=== PATIENT | female | born 1980 | race Caucasian/White ===

== ENCOUNTER 2022-05-14 06:12 | Observation (INO) ==
--- NOTE | 2022-04-13 10:34 | PAT Medication Instructions ---
Medication Instructions Date of Service April 13, 2022 Home Medications albuterol sulfate 90 mcg/actuation aerosol inhaler 1 inh inhalation QID PRN ascorbic acid (vitamin C) 1,000 mg tablet (Vitamin C) 1 g PO BID cholecalciferol (vitamin D3) 125 mcg (5,000 unit) tablet (Vitamin D3) 125 mcg PO TID cyanocobalamin (vitamin B-12) 1,000 mcg capsule 1,000 mcg PO QAM dulaglutide 4.5 mg/0.5 mL subcutaneous pen injector (Trulicity) 4.5 mg subcut WK hydrochlorothiazide 25 mg tablet 25 mg PO QAM levonorgestrel 20 mcg/24 hours (8 yrs) 52 mg intrauterine device (Mirena) 20 mcg intrauterine UD levothyroxine 200 mcg tablet 200 mcg PO QAM liothyronine 5 mcg tablet 10 mcg PO QAM lisinopril 10 mg tablet 10 mg PO QAM omega-3 fatty acids 1,000 mg PO QAM sertraline 50 mg tablet 75 mg PO QAM simvastatin 10 mg tablet 10 mg PO BID Continue as directed dulaglutide 4.5 mg/0.5 mL subcutaneous pen injector (Trulicity) 4.5 mg subcut WK levonorgestrel 20 mcg/24 hours (8 yrs) 52 mg intrauterine device (Mirena) 20 mcg intrauterine UD STOP taking 2 weeks before surgery (or as soon as possible if surgery is within 2 weeks) omega-3 fatty acids 1,000 mg PO QAM DO NOT take the morning of surgery ascorbic acid (vitamin C) 1,000 mg tablet (Vitamin C) 1 g PO BID cholecalciferol (vitamin D3) 125 mcg (5,000 unit) tablet (Vitamin D3) 125 mcg PO TID cyanocobalamin (vitamin B-12) 1,000 mcg capsule 1,000 mcg PO QAM hydrochlorothiazide 25 mg tablet 25 mg PO QAM lisinopril 10 mg tablet 10 mg PO QAM Take morning of surgery With a small sip of water, OTHERWISE NOTHING TO EAT OR DRINK AFTER MIDNIGHT: albuterol sulfate 90 mcg/actuation aerosol inhaler 1 inh inhalation QID PRN (use if needed; please bring rescue inhaler with you to hospital day of surgery if possible) levothyroxine 200 mcg tablet 200 mcg PO QAM liothyronine 5 mcg tablet 10 mcg PO QAM sertraline 50 mg tablet 75 mg PO QAM simvastatin 10 mg tablet 10 mg PO BID Take evening before surgery albuterol sulfate 90 mcg/actuation aerosol inhaler 1 inh inhalation QID PRN (if needed) ascorbic acid (vitamin C) 1,000 mg tablet (Vitamin C) 1 g PO BID cholecalciferol (vitamin D3) 125 mcg (5,000 unit) tablet (Vitamin D3) 125 mcg PO TID simvastatin 10 mg tablet 10 mg PO BID Other Notes If you have any questions please call us at [phone] or [phone] or [phone] or [phone]
--- NOTE | 2022-04-20 12:58 | Anesthesiology Consultation ---
Date of Service April 20, 2022 Assessment & Plan (1) Encounter for pre-operative examination: - A1c 6.5%- check BSG am DOS. PAT testing to be faxed to PCP for continuity of care. - check urine test STAT Am DOS. Chart Review Chart Review: Acceptable Risk for Surgery and Patient seen in Pre Admission Testing Teaching & Discussion Pre-Anesthesia Teaching/Discussion Notes: Instructed NPO after midnight before surgery, except medications with 15 cc of water. Medication instructions provided according to the PAT guidelines. History Surgery Operation Date: 05/14/22 11:40 Proposed Procedures p C3-C4 Anterior Cervical Discectomy and Fusion, C5 Corpectomy, Spinal Cord Monitoring - Sreedhar Samano, Height/Weight Height: 5 ft 9 in Weight: 171.7 kg Allergies Allergy/AdvReac Type Severity Reaction Status Date / Time prednisone Allergy Intermediate Hives Verified 04/12/22 15:33 Penicillins AdvReac Intermediate Hives Verified 04/12/22 15:33 metformin AdvReac Mild SICK TO Verified 04/12/22 15:33 STOMACH BEE STINGS Allergy Intermediate Hives Uncoded 04/12/22 15:33 Medications Home Medications Medication Instructions Recorded Confirmed Last Taken albuterol sulfate 90 mcg/actuation 1 inh inhalation QID PRN SOB 04/12/22 04/12/22 Unknown aerosol inhaler ascorbic acid (vitamin C) 1,000 mg 1 g PO BID 04/12/22 04/12/22 Unknown tablet (Vitamin C) cholecalciferol (vitamin D3) 125 125 mcg PO TID 04/12/22 04/12/22 Unknown mcg (5,000 unit) tablet (Vitamin D3) cyanocobalamin (vitamin B-12) 1,000 mcg PO QAM 04/12/22 04/12/22 Unknown 1,000 mcg capsule dulaglutide 4.5 mg/0.5 mL 4.5 mg subcut WK 04/12/22 04/12/22 Unknown subcutaneous pen injector (Trulicity) hydrochlorothiazide 25 mg tablet 25 mg PO QAM 04/12/22 04/12/22 Unknown levonorgestrel 20 mcg/24 hours (8 20 mcg intrauterine UD 04/12/22 04/12/22 Unknown yrs) 52 mg intrauterine device (Mirena) levothyroxine 200 mcg tablet 200 mcg PO QAM 04/12/22 04/12/22 Unknown liothyronine 5 mcg tablet 10 mcg PO QAM 04/12/22 04/12/22 Unknown lisinopril 10 mg tablet 10 mg PO QAM 04/12/22 04/12/22 Unknown omega-3 fatty acids 1,000 mg PO QAM 04/12/22 04/12/22 Unknown sertraline 50 mg tablet 75 mg PO QAM 04/12/22 04/12/22 Unknown simvastatin 10 mg tablet 10 mg PO BID 04/12/22 04/12/22 Unknown Past Medical History Medical History (Updated 04/20/22 @ 13:05 by Tiffani Barnard PA-C) Anxiety and depression Asthma LAST USED RESCUE INHALER OVER 1 YEAR AGO History of blood transfusion 2020 d/t severe menorrhagia, s/p D&C, Mirena History of COVID-19 06/2021>SYMPTOMS RESOLVED Hyperlipidemia Hypertension controlled, stable per pt Hypothyroidism PCOS (polycystic ovarian syndrome) Prediabetes on Trulicity Patient denies h/o stroke, seizures, heart attack, heart failure, or blood clots. Exercise / Class Metabolic Activity II 4-5 Yardwork/Stairs/Walk up hill (denies CP or SOB with 1 FOS) Past Family History Family History (Updated 04/12/22 @ 15:43 by Mary Beth Howard RN) Other No family history of adverse response to anesthesia Past Surgical History Surgical History (Updated 04/12/22 @ 15:43 by Mary Beth Howard RN) History of dilatation and curettage X 4 [place] teeth removed Past Anesthesia History No Hx of Anesthesia Complications and No Family Hx of Anesthesia Complications History of PONV No Hx of PONV and No Hx of Motion Sickness Social History Smoking Status: Never smoker Hx Alcohol Use: No substance use type: does not use Review of Systems Patient denies chest pain, shortness of breath, dyspnea on exertion, snoring, witnessed apneas, reflux, fever, chills, cough, wheezing, or palpitations. Physical Exam Vital Signs Vitals BP 140/73 P 77 TEMP 98.2 SP02 97% on RA RESP 18 Physical Full cervical extension range of motion without pain TMD 3.5 finger breadths Mallampati Score 2 Dentition: intact, left lower back chipped tooth; denies loose teeth, caps/crowns, implants or bridges Lungs: normal respiratory effort. Clear throughout to auscultation, no adventitious breath sounds Cardiac: regular rate and rhythm, no murmurs noted Carotid arteries: negative bruit bilat Lab Results Anesthesia Preop Results Results Anesthesia Widget: WBC 8.50 K/ul (4.8-10.8) 04/20/22 Hgb 14.6 g/dl (12.0-16.0) 04/20/22 Hct 43.7 % (34.1-44.9) 04/20/22 Plt 176 K/uL (130-400) 04/20/22 Na 138 mmol/L (136-145) 04/20/22 K 3.9 mmol/L (3.5-5.1) 04/20/22 Cl 105 mmol/L (98-107) 04/20/22 CO2 28 mmol/L (21-32) 04/20/22 BUN 16 mg/dl (6-23) 04/20/22 Creat 0.73 mg/dl (0.6-1.2) 04/20/22 Glucose Level 88 mg/dl (70-99(Fasting)) 04/20/22 PT 10.6 Seconds (9.0-12.0) 04/20/22 PTT 26.4 Seconds (21.0-31.0) 04/20/22 INR 1.0 (0.9-1.1) 04/20/22 HA1c 6.5 % (4.5-5.6) H 04/20/22 Urine Color Yellow 04/20/22 Urine Appearance Cloudy (Clear) A 04/20/22 Urine pH 5.5 (4.5-7.5) 04/20/22 Urine Specific [place] 1.020 (1.000-1.030) 04/20/22 Urine Protein Negative (Negative) 04/20/22 Urine Glucose (UA) Negative (Negative) 04/20/22 Urine Ketones Negative (Negative) 04/20/22 Urine Blood Negative (Negative) 04/20/22 Urine Nitrite Negative (Negative) 04/20/22 Urine Bilirubin Negative (Negative) 04/20/22 Urine Urobilinogen Negative (Negative) 04/20/22 Urine Leukocyte Esterase Negative (Negative) 04/20/22 Urine WBC (Auto) 1-5 /hpf (0-5) 04/20/22 Urine RBC (Auto) 0-4 /hpf (0-4) 04/20/22 Urine Hyaline Casts (Auto) 1-5 /lpf (0-5) 04/20/22 Urine Epithelial Cells (Auto) >30 /lpf (0-5) H 04/20/22 Urine Bacteria (Auto) 1+ (Negative) H 04/20/22 Urine Yeast Budding (None Prsent) A 04/20/22 Blood Type A Positive 04/20/22 Antibody Screen NEGATIVE 04/20/22 Testing Laboratory Results Surgeon's office made aware of A1c and abnormal UA, culture. Electrocardiogram Date: 04/20/22 NSR, rate 82 bpm Low voltage QRS Chest X-Ray Date: 04/20/22 No acute cardiopulmonary findings COVID-19 Risk Screen Screening Information COVID-19 Screen Date: 04/20/22 Exposure 21 Days Family/Household +COVID Last 21 Days: No Exposure 10 Days Any COVID Exposure Last 10 Days: No Symptoms Last 10 Days Experienced COVID Sx Last 10 Days: No + COVID 0-90 Days COVID + in Last 0-90 Days: No
--- NOTE | 2022-04-20 15:13 | Electrocardiogram Report ---
Test Reason : Blood Pressure : / mmHG Vent. Rate : 082 BPM Atrial Rate : 082 BPM P-R Int : 164 ms QRS Dur : 084 ms QT Int : 392 ms P-R-T Axes : 055 -22 063 degrees QTc Int : 457 ms Normal sinus rhythm Low voltage QRS No previous ECGs available Confirmed by Alec Bhakta ([id number]) on 04/20/2022 3:12:54 PM Referred By: Sreedhar Samano Confirmed By:Serge Bhakta
[~2022-05-14 06:12] MED LIST: ACETAMINOPHEN 500 MG TAB PO SCH; CLINDAMYCIN/D5W 900 MG/50 ML BAG IV SCH; CeleBREX 200 MG CAP PO SCH; GABAPENTIN 900 MG DOSE PO SCH; LR 15ML/HR IV SCH
[2022-05-14] MEDS ORDERED: PROPOFOL IV EMULSION 10 MG/ML 20 ML VIAL IV ONE ×3 (06:59→07:11)
[2022-05-14] MEDS ORDERED: ceFAZolin 330 MG/ML 1 GM VIAL ONE (06:59)
[2022-05-14] MEDS ORDERED: MIDAZOLAM HCL 1 MG/ML 2ML VIAL ONE (06:59)
[2022-05-14] MEDS ORDERED: DEXAMETHASONE SOD INJ 4 MG/ML VIAL ONE (06:59)
[2022-05-14] MEDS ORDERED: ONDANSETRON INJ 2 MG/ML 2 ML VIAL ONE (06:59)
[2022-05-14] MEDS ORDERED: fentaNYL citrate 100 MCG/2 ML VIAL ONE ×2 (06:59→08:14)
[2022-05-14] MEDS ORDERED: SUCCINYLCHOLINE CHLORIDE 20 MG/ML 10 ML VIAL IV ONE (07:00)
[2022-05-14] MEDS ORDERED: ROCURONIUM BROMIDE 10 MG/ML 5 ML VIAL IV ONE ×5 (07:00→07:01)
--- NOTE | 2022-05-14 07:35 | History & Physical Bridge Note ---
Date of Service May 14, 2022 History & Physical Bridge Note I have examined the patient, reviewed the History & Physical and in the interval since the performance of the History & Physical I have noted the following changes of clinical significance: no changes noted
--- NOTE | 2022-05-14 07:36 | History & Physical Report ---
Date of Service May 14, 2022 Assessment & Plan (1) Myelopathy concurrent with and due to spinal stenosis of cervical region: Plan: C3-C4 anterior cervical discectomy and fusion, cervical C5 corpectomy History of Present Illness Chief Complaint: Neck and arm pain Primary Care Provider: Tim Day This is a 41-year-old female who presents with chronic persistent neck and arm pain after failing course of nonoperative care is here for surgical invention. Allergies Allergy/AdvReac Type Severity Reaction Status Date / Time Penicillins Allergy Intermediate Hives Verified 05/14/22 06:38 prednisone Allergy Intermediate Hives Verified 05/14/22 06:38 metformin AdvReac Mild SICK TO Verified 05/14/22 06:38 STOMACH BEE STINGS Allergy Intermediate Hives Uncoded 05/14/22 06:38 Home Medications Medication Instructions Recorded Confirmed Type albuterol sulfate 90 mcg/actuation 1 inh inhalation QID PRN SOB 04/12/22 05/14/22 History aerosol inhaler ascorbic acid (vitamin C) 1,000 mg 1 g PO BID 04/12/22 05/14/22 History tablet (Vitamin C) cholecalciferol (vitamin D3) 125 125 mcg PO DAILY 04/12/22 05/14/22 History mcg (5,000 unit) tablet (Vitamin D3) cyanocobalamin (vitamin B-12) 1,000 mcg PO QAM 04/12/22 05/14/22 History 1,000 mcg capsule dulaglutide 4.5 mg/0.5 mL 4.5 mg subcut WK 04/12/22 05/14/22 History subcutaneous pen injector (Trulicity) hydrochlorothiazide 25 mg tablet 25 mg PO QAM 04/12/22 05/14/22 History levonorgestrel 20 mcg/24 hours (8 20 mcg intrauterine UD 04/12/22 05/14/22 History yrs) 52 mg intrauterine device (Mirena) levothyroxine 200 mcg tablet 200 mcg PO QAM 04/12/22 05/14/22 History liothyronine 5 mcg tablet 10 mcg PO QAM 04/12/22 05/14/22 History lisinopril 10 mg tablet 10 mg PO QAM 04/12/22 05/14/22 History omega-3 fatty acids 1,000 mg PO QAM 04/12/22 05/14/22 History sertraline 50 mg tablet 75 mg PO QAM 04/12/22 05/14/22 History simvastatin 10 mg tablet 10 mg PO ONCE HS 04/12/22 05/14/22 History Past Med/Surg History Medical History (Updated 05/14/22 @ 07:35 by Sreedhar Samano, ) Anxiety and depression Asthma LAST USED RESCUE INHALER OVER 1 YEAR AGO History of blood transfusion 2020 d/t severe menorrhagia, s/p D&C, Mirena History of COVID-19 06/2021>SYMPTOMS RESOLVED Hyperlipidemia Hypertension controlled, stable per pt Hypothyroidism PCOS (polycystic ovarian syndrome) Prediabetes on Trulicity Surgical History History of dilatation and curettage X 4 [place] teeth removed Family History (Updated 04/12/22 @ 15:43 by Mary Beth Howard RN) Other No family history of adverse response to anesthesia Social History Smoking Status: Never smoker Second Hand Exposure: Yes (FAMILY MEMBERS SMOKE/NOBODY IN THE HOUSE NOW BUT IN THE PAST); Hx Alcohol Use: No Preferred Language: Citizen Of [place] Marketing Designer Required: No Beliefs That Will Affect Care: None Current Living Situation: Family Current Living Situation Comment: WITH MOTHER AND GRANDMOTHER Feels Safe at Home: Yes Safety Concerns: Feels Safe At This Time Assistive Devices: None Physical Exam Physical Exam: Patient is alert and oriented Heart regular rhythm Lungs clear Results & Data Results & Data ([facility]) Vital Signs (Past 12 Hours) Vital Signs Temp Pulse Resp BP Pulse Ox O2 Del Method 05/14/22 06:43 37.0 C 91 H 20 132/70 96 Room Air
[2022-05-14] MEDS ORDERED: ePHEDrine sulfate 50 MG/ML AMP IV PRN (07:47)
[2022-05-14] MEDS ORDERED: ONDANSETRON INJ 2 MG/ML 2 ML VIAL IV PRN ×2 (07:47→12:17)
[2022-05-14] MEDS ORDERED: HYDROmorphone INJ 2 MG/ML SYR/VIAL IV PRN (07:47)
[2022-05-14] MEDS ORDERED: PROMETHAZINE HCL 12.5 MG in SODIUM CHLORIDE 0.9% 50 ML IV PRN ×2 (07:47→12:17)
[2022-05-14] MEDS ORDERED: ATROPINE SULFATE 0.1 MG/ML 10ML SYR IV PRN (07:47)
[2022-05-14] MEDS ORDERED: fentaNYL citrate 100 MCG/2 ML VIAL IV PRN (07:47)
[2022-05-14] MEDS ORDERED: SUGAMMADEX SODIUM 200 MG/2 ML VIAL IV ONE (08:29)
[2022-05-14] MEDS ORDERED: LIDOCAINE 2% MPF LOCAL 5 ML VIAL INFIL ONE (08:41)
[2022-05-14] MEDS ORDERED: HYDROmorphone INJ 2 MG/ML SYR/VIAL ONE (09:37)
[2022-05-14] MEDS ORDERED: METOPROLOL TARTRATE 1 MG/ML VIAL IV ONE (10:12)
--- NOTE | 2022-05-14 10:40 | Operative Report ---
Post Operative Report Pre & Post Diagnosis Operation Date: 05/14/22 07:45 Pre-Op Diagnosis: Cervical spinal stenosis with myeloradiculopathy Morbid obesity Post-Op Diagnosis: Same I identified the patient and participated in the time-out.: Yes Procedure Operation Date: 05/14/22 07:45 Actual Procedures #1 anterior cervical discectomy with bilateral foraminotomies C3-C4. #2 anterior cervical corpectomy with bilateral foraminotomies C5. #3 anterior cervical arthrodesis C3-C4 and C4-C6. #4 placement of 8 mm peek cage at C3-C4 and 27 mm peek cage at C4-C6. #5 placement of locally harvested morselized autograft combined with I factor in the interbody cages. #6 application of K2 M plate and screws from C3-C6. Surgeon Sreedhar Samano, DO Invasive Cardiovascular Technologist Luly Powers Estimated Blood Loss 25 Findings See Below The patient is 5 foot 9 weighing over 171 kg with a BMI in excess of 55. Patient's body habitus did contribute to significant technical difficulty from positioning to exposure. This added at least 50% increased operative time. Specimens None Indications This is a 41-year-old female who presents above-mentioned diagnosis after failed course of nonoperative care is here for surgical invention. Description of Procedure Patient was met with identified informed consent obtained. 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 All bony prominences well-padded eyes inspected to ensure no external pressure placed upon them. This point the anterior cervical spine was prepped and draped no sterile fashion. The assistance of fluoroscopy identified the C for C5 to space and a transverse incision was placed along the right anterior aspect of the cervical spine overlying his region. Blunt dissection with assistance of bipolar electrocautery was then performed down to expose the anterior cervical spine from C3 to see 6. Self-retaining retractors placed. Then performed a complete discectomy of C4-C5 out to the uncovertebral joints bilaterally followed by C5- C6. [place] distracting pins were then placed in C4 and C6 to distract across the C5 vertebral body. A complete corpectomy was then performed including bilateral foraminotomies. Obvious severe compression was noted. The endplates were then burred to subcortical bleeding bone and a 27 mm peek cage filled with locally harvested morselized autograft and I factor tapped in position. Then proceeded to C3-C4 and again complete discectomy performed out to the uncovertebral joints bilaterally. [place] distracting pins again utilized. Removed all posterior annular fibers longitudinal ligament bilateral foraminotomies performed. Endplates were then burred to subcortically bone and 8 mm peek cage filled with I factor and locally harvested morselized autograft tapped in position. Distracting apparatus was removed and a K2 M plate and screws was applied with the assistance of fluoroscopy. The incision was then copiously irrigated explored to ensure no damage to surrounding structures remaining bleeding. 10 round YVES drain inserted. The incision was then closed with 2 Vicryl in a fashion of 4 Monocryl for fascial closure. Steri-Strip sterile dressings placed. Patient awakened taken to recovery in stable condition. Please note spinal cord monitoring was utilized at the procedure no changes noted. Lastly Luly Powers was present at the entire surgery and while the patient positioning complex portions of the surgery and fascial closure. I attest to the content of the Intraoperative Record and any orders documented therein. Any exceptions are noted below.
--- NOTE | 2022-05-14 11:12 | Fluoroscopy Report ---
INTRAOPERATIVE RADIOGRAPHS CLINICAL HISTORY: Cervical spinal fusion surgery. Fluoroscopy time: 19 seconds. FINDINGS: 2 spot fluoroscopic views of the cervical spine are presented. There has been corpectomy of C5 with anterior spinal fusion seen at C3-C6. Discectomy change is noted. The orthopedic hardware ap pears intact. An endotracheal tube is in place. IMPRESSION: Intraoperative images from cervical spinal fusion surgery as above. Electronically signed by: Chirag Najera M.D. 05/14/2022 11:11 AM
--- NOTE | 2022-05-14 11:55 | Anesthesiology Progress Note ---
Date of Service May 14, 2022 Anesthesia Post Procedure Vital Signs Vital Signs: Temp Pulse Resp BP BP Pulse Ox O2 Del Method 05/14/22 11:45 94 H 24 126/76 95 Nasal Cannula 05/14/22 11:35 94 H 24 129/75 94 Nasal Cannula 05/14/22 11:25 102 H 22 131/80 95 Nasal Cannula 05/14/22 11:15 91 H 27 H 132/77 93 Oxymask 05/14/22 11:05 94 H 21 124/77 93 Oxymask 05/14/22 10:56 36.6 C 90 16 136/87 93 Oxymask 05/14/22 06:43 37.0 C 91 H 20 132/70 96 Room Air O2 Flow Rate 05/14/22 11:45 3 05/14/22 11:35 3 05/14/22 11:25 3 05/14/22 11:15 7 05/14/22 11:05 7 05/14/22 10:56 7 05/14/22 06:43 Pain Intensity Neck: Pain Intensity: 10 Transfer of Care Handoff Completed per policy Notes Mental Status: alert / awake / arousable and participated in evaluation Patient Amnestic to Procedure: Yes Nausea / Vomiting: adequately controlled Pain: adequately controlled Airway Patency, RR, SpO2: stable & adequate BP & HR: stable & adequate Hydration State: stable & adequate Anesthetic Complications: no major complications apparent
[2022-05-14] MEDS ORDERED: traMADol HCL 50 MG TABLET PO PRN (12:17)
[2022-05-14] MEDS ORDERED: FAMOTIDINE 20 MG TAB PO PRN (12:17)
[2022-05-14] MEDS ORDERED: diphenhydrAMINE Capsule 25 MG CAP PO PRN (12:17)
[2022-05-14] MEDS ORDERED: SOD PHOSPHATE/SOD BIPHOSPHATE ENEMA 132 ML BTL PR PRN (12:17)
[2022-05-14] MEDS ORDERED: ONDANSETRON 4 MG OD TAB PO PRN (12:17)
[2022-05-14] MEDS ORDERED: ALUMINUM/MAGNESIUM SUSP 30 ML UDC PO PRN (12:17)
[2022-05-14] MEDS ORDERED: HYDROmorphone INJ 0.5 MG/0.5 ML SYR IV PRN (12:17)
[2022-05-14] MEDS ORDERED: hydrOXYzine HCl 25 MG TAB PO PRN (12:17)
[2022-05-14] MEDS ORDERED: LACTATED RINGER'S 1,000 ML IV SCH (12:17)
[2022-05-14] MEDS ORDERED: LORazepam 0.5 MG TAB PO PRN (12:17)
[2022-05-14] MEDS ORDERED: ACETAMINOPHEN 1,000 MG/100 ML VIAL IV PRN (12:17)
[2022-05-14] MEDS ORDERED: RACEPINEPHRINE 2.25% NEBU SOLN 0.5 ML VIAL INH PRN (12:17)
[2022-05-14] MEDS ORDERED: PHARMACY GLYCEMIC MGMT CONSULT PRN (12:17)
[2022-05-14] MEDS ORDERED: ACETAMINOPHEN 500 MG TAB PO PRN (12:17)
[2022-05-14] MEDS ORDERED: LORazepam 0.5 MG in SYRINGE 0 ML IV PRN (12:17)
[2022-05-14] MEDS ORDERED: bisacodyL 10 MG SUPP PR PRN (12:17)
[2022-05-14] MEDS ORDERED: METOCLOPRAMIDE HCL INJ 5 MG/ML 2 ML VIAL IV PRN (12:17)
[2022-05-14] MEDS ORDERED: HYDROmorphone INJ 1 MG/ML SYRINGE IV PRN (12:17)
[2022-05-14] MEDS ORDERED: dexAMETHasone 8 MG in SYRINGE 0 ML IV PRN (12:17)
[2022-05-14] MEDS ORDERED: MAGNESIUM HYDROXIDE SUSP 30 ML UDC PO PRN (12:17)
[2022-05-14] MEDS ORDERED: NALOXONE HCL 0.4 MG/1 ML VIAL/CARP IV PRN (12:17)
--- NOTE | 2022-05-14 12:31 | Consultation ---
Date of Consultation May 14, 2022 Assessment & Plan (1) S/P cervical discectomy: (2) Diabetes mellitus type 2 in obese: (3) Hypertension: (4) Hyperlipidemia: (5) Hypothyroidism: (6) Anxiety and depression: Plan Ms. Kasia Lind is a 41 year old female that presented to the [facility] for an elective C3-C4 cervical discectomy/fusion and a C5 corpectomy after failed conservative management. PMH: diabetes mellitus type 2, hypothyroidism, hyperlipidemia, hypertension, anxiety and depression. S/P cervical discectomy: POD# 0 s/p cervical discectomy and fusion with Dr. Samano. EBL 25 mL; baseline hemoglobin 14.6; trend in a.m. Per ortho for pain control, wound care, anticoagulation and activities. Monitor H&H, continue incentive spirometry. PT/OT when appropriate Trend CBC in a.m. Pt nauseated post operatively; responded well to Zofran Diabetes mellitus type 2: Last A1c 04/20: 6.5 On , last dose on Saturday Takes repaglinide daily SQ insulin sliding scale calculator used; will do FSBS and SSI while inpatient Lantus 40 units subcu administered once postop Patient received IV steroids intraoperatively Glycemic pharmacy on board Hypertension: Takes hydrochlorothiazide and lisinopril Normotensive postop; continue Creatinine 0.73; trend in a.m. normotensive post-op Hyperlipidemia: Takes simvastatin; continue Hypothyroidism: Takes levothyroxine and liothyronine; continue Anxiety and depression: Takes sertraline; continue Disposition: PCP: Kavin; Dr. Day VTE Prophylaxis: TEDS and SCDs CODE STATUS: full code I personally was able to review all current laboratory work and diagnostic images obtained in the ED. Additionally, I was able to review the patients past medication reconciliation and history with direct visualization in the patients chart. This patient was see in collaboration with Dr. Ayala. Please see his addendum for further details. Please feel free to contact [facility] hospitalist service at any time via Kaycee text. Supervising Physician Co-Signing Physician Notes Patient reports surgical site pain is well controlled at this time Patient has neck collar in place and surgical site drain in situ. Patient is s/p C3-C4 Anterior Cervical Discectomy and Fusion, C5 Corpectomy today Will continue to follow while inpatient Monitor blood glucose and manage with insulin sliding scale while inpt and on dexamethasone Check CBC and BMP in AM Resume home antihypertensives tomorrow Agree with other plans as detailed by Marie OLVERA History of Present Illness Reason for Consultation: post-operative medical management Attending Physician: Sreedhar Samano, DO History of Present Illness Ms. Kasia Lind is a 41 year old female that presented to the [facility] for an elective C3-C4 cervical discectomy/fusion and a C5 corpectomy after failed conservative management. Additional past medical history includes diabetes mellitus type 2, hypothyroidism, hyperlipidemia, hypertension, depression. The patient was quite groggy after surgery and was unable to participate in most of our conversation. She was sitting upright in her bed and was complaining of nausea for which she was just medicated with Zofran. Her mother, Stacie, who she lives with, grandmother and aunt were at her bedside and able to answer questions on her behalf. Currently the patient has no complaints other than nausea. She feels her pain is well controlled. Patient uses Trulicity, her last dose was on Saturday and she also takes repaglinide. The patient does not use any tobacco products, alcohol products, or recreational drugs. Patient sees Dr. Day in [place] for PCP. For now we will continue to evaluate and manage her other comorbidities. Please see A/P for further details. Thank you for consulting [facility] hospitalist service. Allergies Allergy/AdvReac Type Severity Reaction Status Date / Time Penicillins Allergy Intermediate Hives Verified 05/14/22 06:38 prednisone Allergy Intermediate Hives Verified 05/14/22 06:38 metformin AdvReac Mild SICK TO Verified 05/14/22 06:38 STOMACH BEE STINGS Allergy Intermediate Hives Uncoded 05/14/22 06:38 Home Medications Medication Instructions Recorded Confirmed Type albuterol sulfate 90 mcg/actuation 1 inh inhalation QID PRN SOB 04/12/22 05/14/22 History aerosol inhaler ascorbic acid (vitamin C) 1,000 mg 1 g PO BID 04/12/22 05/14/22 History tablet (Vitamin C) cholecalciferol (vitamin D3) 125 125 mcg PO DAILY 04/12/22 05/14/22 History mcg (5,000 unit) tablet (Vitamin D3) cyanocobalamin (vitamin B-12) 1,000 mcg PO QAM 04/12/22 05/14/22 History 1,000 mcg capsule dulaglutide 4.5 mg/0.5 mL 4.5 mg subcut WK 04/12/22 05/14/22 History subcutaneous pen injector (Trulicity) hydrochlorothiazide 25 mg tablet 25 mg PO QAM 04/12/22 05/14/22 History levonorgestrel 20 mcg/24 hours (8 20 mcg intrauterine UD 04/12/22 05/14/22 History yrs) 52 mg intrauterine device (Mirena) levothyroxine 200 mcg tablet 200 mcg PO QAM 04/12/22 05/14/22 History liothyronine 5 mcg tablet 10 mcg PO QAM 04/12/22 05/14/22 History lisinopril 10 mg tablet 10 mg PO QAM 04/12/22 05/14/22 History omega-3 fatty acids 1,000 mg PO QAM 04/12/22 05/14/22 History sertraline 50 mg tablet 75 mg PO QAM 04/12/22 05/14/22 History simvastatin 10 mg tablet 10 mg PO ONCE HS 04/12/22 05/14/22 History oxycodone 5 mg tablet 5 mg PO Q6H PRN pain, severe #20 05/14/22 Rx tabs tramadol 50 mg tablet 50 mg PO Q6H PRN pain, moderate 05/14/22 Rx #20 tabs Patient History Medical History (Updated 05/14/22 @ 14:00 by WADE Uriostegui) Anxiety and depression Asthma LAST USED RESCUE INHALER OVER 1 YEAR AGO Diabetes mellitus type 2 in obese History of blood transfusion 2020 d/t severe menorrhagia, s/p D&C, Mirena History of COVID-19 06/2021>SYMPTOMS RESOLVED Hyperlipidemia Hypertension controlled, stable per pt Hypothyroidism PCOS (polycystic ovarian syndrome) [facility] Surgical History (Updated 05/14/22 @ 14:00 by WADE Uriostegui) History of dilatation and curettage X 4 S/P cervical discectomy [place] teeth removed Family History Other No family history of adverse response to anesthesia Social History Smoking Status: Never smoker Second Hand Exposure: Yes (FAMILY MEMBERS SMOKE/NOBODY IN THE HOUSE NOW BUT IN THE PAST); Hx Alcohol Use: No Preferred Language: Wolof 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 Required: No Beliefs That Will Affect Care: None Current Living Situation: Family Current Living Situation Comment: WITH MOTHER AND GRANDMOTHER Feels Safe at Home: Yes Safety Concerns: Feels Safe At This Time Assistive Devices: None Review of Systems Review of Systems: Neuro: (-) Falls, trauma, slurred speech HEENT: (-) VIEIRA, dizziness, dysphagia, visual or auditory changes CV: (-) CP, palpitations, swelling Resp: (-) SOB GI: (-) appetite changes, (+) nausea and vomiting, (-) diarrhea, bowel changes : (-) urinary changes Skin: (-) rashes Psych: (-) anxiety, depression Physical Exam Physical Exam: Neuro: AAOx4, PERRLA, no aphagia, memory changes, CNII-XII grossly intact. (+) cervical collar in place HEENT: head normocephalic, moist mucus membranes CV: S1/S2, (-) M/G/R, (-) edema, cap refill < [address] seconds. YVES drain in place with serosanguineous drainage Resp: Lungs CTA in all aviles. On RA GI: Abdomen S/NT/ND, Ax4 bowel sounds, (-) CVA tenderness Musculoskeletal: 5/5 B/L UE strength, 5/5 B/L LE strength. No gait disturbance Skin: (-) rashes , (-) erythema. (+) anterior cervical neck dressing intact. Psych: euthymic mood Results & Data ([facility]) Vital Signs (Past 12 Hours) Vital Signs Temp Pulse Resp BP BP Pulse Ox O2 Del Method 05/14/22 12:05 95 H 22 138/78 96 Nasal Cannula 05/14/22 11:55 36.6 C 94 H 22 125/78 96 Nasal Cannula 05/14/22 11:45 94 H 24 126/76 95 Nasal Cannula 05/14/22 11:35 94 H 24 129/75 94 Nasal Cannula 05/14/22 11:25 102 H 22 131/80 95 Nasal Cannula 05/14/22 11:15 91 H 27 H 132/77 93 Oxymask 05/14/22 11:05 94 H 21 124/77 93 Oxymask 11/28/22 10:56 36.6 C 90 16 136/87 93 Oxymask 05/14/22 06:43 37.0 C 91 H 20 132/70 96 Room Air O2 Flow Rate 05/14/22 12:05 3 05/14/22 11:55 3 05/14/22 11:45 3 05/14/22 11:35 3 05/14/22 11:25 3 05/14/22 11:15 7 05/14/22 11:05 7 05/14/22 10:56 7 05/14/22 06:43 Diagnostic Findings Cervical Spine X-Ray 05/14/22 07:45 INTRAOPERATIVE RADIOGRAPHS CLINICAL HISTORY: Cervical spinal fusion surgery. Fluoroscopy time: 19 seconds. FINDINGS: 2 spot fluoroscopic views of the cervical spine are presented. There has been corpectomy of C5 with anterior spinal fusion seen at C3-C6. Discectomy change is noted. The orthopedic hardware appears intact. An endotracheal tube is in place. IMPRESSION: Intraoperative images from cervical spinal fusion surgery as above. Electronically signed by: Chirag Najera M.D. 05/14/2022 11:11 AM
[2022-05-14] MEDS ORDERED: LEVONORGESTREL (MIRENA) IUD PV SCH (12:45)
[2022-05-14] MEDS ORDERED: LANTUS PER UNIT CHARGE SQ ONE (13:00)
[2022-05-14] MEDS: SODIUM CHLORIDE 0.9% 1000ML 1,000 ML IV SCH ×2 (13:15→20:49)
[2022-05-14] MEDS: INSULIN ASPART PER UNIT SC SCH ×4 (13:37→23:41)
[2022-05-14] MEDS ORDERED: GLUCAGON FOR INJ 1 MG VIAL SQ PRN (14:38)
[2022-05-14] MEDS ORDERED: DEXTROSE 50% 50 ML SYRINGE IV PRN (14:38)
[2022-05-14] MEDS ORDERED: GLUCOSE 10 TAB/TUBE PO PRN (14:38)
[2022-05-14] MEDS ORDERED: CARBOHYDRATES FOR HYPOGLYCEMIA PO PRN (14:38)
[2022-05-14] MEDS ORDERED: GLUCOSE 40% GEL 15 GM TUBE PO PRN (14:38)
--- NOTE | 2022-05-14 15:10 | Pharmacy Report ---
Pharmacy Glycemic Short Note 2 - Date of Service May 14, 2022 - Glycemic Short BSG Results (Last 24 hours): 05/14/22 05/14/22 05/14/22 06:33 11:00 12:30 POC Glucose 105 H 142 H 193 H OUTPATIENT ANTIDIABETIC REGIMEN: * Trulicity * A1c 6.5% ASSESSMENT: * 41 year old female now s/p spinal surgery. Given steroids intraoperatively, then ordered dexamethasone 6 mg iv q 8 hrs x 3 doses. Patient is a type 2 diabetic at home. Anticipate steroid induced hyperglycemia * Will give her a one time dose of Lantus 40 units x 1 to help with covering steroids which is in between stress 2/3 dosing based upon adjusted body weight. Will use a stress of 3 dosing for novolog for now * May add small scale for additional basal for HS time in case BSGs are rapidly increasing PLAN FOR INPATIENT GLYCEMIC CONTROL: * Hold outpatient oral diabetes medications * Basal insulin * Lantus 40 units x 1 * Lantus 0-15 units HS * Bolus insulin * NovoLog per scale ACHS or Q6hrs while NPO * Goal Range: Low 110 mg/dL - High 140 mg/dL * Correction Factor: 15 mg/dL/unit * Nutritional / Prandial insulin per carb ratio of 1 unit per 4 grams CHO consumed
[2022-05-14] MEDS: dexAMETHasone 6 MG in SYRINGE 0 ML IV SCH ×2 (15:46→23:07)
[2022-05-14] MEDS ORDERED: INSULIN ASPART PER UNIT SC SCH (16:30)
[2022-05-14] MEDS: CLINDAMYCIN/D5W 600 MG/50 ML BAG IV SCH ×2 (16:36→23:07)
[2022-05-14] MEDS: oxyCODONE HCL IR 5 MG TAB (IMMEDIATE RELEASE) PO PRN ×2 (18:08→23:38)
[2022-05-14] MEDS ORDERED: DOCUSATE SODIUM/SENNA 50/8.6MG TAB PO SCH (21:00)
[2022-05-14] MEDS ORDERED: LANTUS PER UNIT CHARGE SQ SCH (21:00)
[2022-05-14] MEDS ORDERED: SIMVASTATIN 10 MG TAB PO SCH (21:00)
[2022-05-15] MEDS: SODIUM CHLORIDE 0.9% 1000ML 1,000 ML IV SCH (03:12)
[2022-05-15] MEDS: INSULIN ASPART PER UNIT SC SCH ×3 (04:11→13:18)
[2022-05-15] MEDS: POLYETHYLENE (MIRALAX) 17 GM PACK PO SCH ×2 (05:45→11:34)
[2022-05-15] MEDS ORDERED: LEVOTHYROXINE SODIUM 200 MCG TABLET PO SCH (06:30)
[2022-05-15] MEDS: oxyCODONE HCL IR 5 MG TAB (IMMEDIATE RELEASE) PO PRN ×2 (06:51→11:34)
[2022-05-15] MEDS: dexAMETHasone 6 MG in SYRINGE 0 ML IV SCH (07:44)
[2022-05-15] MEDS ORDERED: hydroCHLOROthiazide 25 MG TAB PO SCH (09:00)
[2022-05-15] MEDS ORDERED: LIOTHYRONINE SODIUM 5 MCG TAB PO SCH (09:00)
[2022-05-15] MEDS ORDERED: lisinopril 10 MG TAB PO SCH (09:00)
[2022-05-15] MEDS ORDERED: SERTRALINE HCL 50 MG TABLET PO SCH (09:00)
[2022-05-15 10:26] LABS: Hematocrit (blood only) 43.3 % (34.1-44.9); Hemoglobin 14.3 g/dl (12.0-16.0); Mean Corpuscular Hemoglobin 29.7 pg (25.0-34.0); Mean Platelet Volume 10.6 fL (9.4-12.3); Platelet Count 215 K/uL (130-400); RDW Coefficient of Variation 12.7 % (11.5-14.5); RDW Standard Deviation 41.9 fL (36.4-46.3); Red Blood Count 4.81 M/uL (3.93-5.22); White Blood Count 18.17 K/ul (4.8-10.8)
--- NOTE | 2022-05-15 10:45 | Discharge Summary ---
Date of Service May 15, 2022 Admission HPI Per Admitting Provider This is a 41-year-old female who presents with chronic persistent neck and arm pain after failing course of nonoperative care is here for surgical invention. Principal Diagnosis Cervical spinal stenosis with myeloradiculopathy Discharge Data Allergies Allergy/AdvReac Type Severity Reaction Status Date / Time Penicillins Allergy Intermediate Hives Verified 05/14/22 06:38 prednisone Allergy Intermediate Hives Verified 05/14/22 06:38 metformin AdvReac Mild SICK TO Verified 05/14/22 06:38 STOMACH BEE STINGS Allergy Intermediate Hives Uncoded 05/14/22 06:38 Consultations 05/14/22 12:17 Consult Hospitalist Routine Procedures Performed Operation Date: 05/14/22 07:45 Actual Procedures p C3-C4 Anterior Cervical Discectomy and Fusion, C5 Corpectomy, Spinal Cord Monitoring(Right) - Sreedhar Samano DO Ordered Studies 05/14/22 07:45 FL cervical 2-3V Routine Hospital Course (1) Myelopathy concurrent with and due to spinal stenosis of cervical region: Please underwent anterior cervical disc ectomy corpectomy and fusion tolerated so was taken to orthopedic for postop labor postop day 1 she was swallowing well. No hoarseness. Arm symptoms markedly improved. Excellent strength testing. YVES drain decreasing appropriately. Good pain control. Subsequently discharged home. Subsequently she was discharged home. Discharge orders instructions can be found in chart for further view. Total Time Total Time Spent Total Time Spent (In Minutes): 20 minutes Discharge Plan Discharge Items Patient Disposition: Home - Self-Care Reason For Visit: Cervical disc Disorder with Radiculopathy Discharge Diagnosis: cervical stenosis with myeloradiculopathy Activity: As commented below Non-emergency contact: Primary Care Provider Call non-emergency contact if: you have any medication questions Follow-up/Referrals: Tim Day [Primary Care Provider] - Diet: Regular Addtl Attending Provider Instructions: ACTIVITY RECOMMENDATIONS: SELF CARE INSTRUCTIONS AFTER CERVICAL FUSIONS 1. No smoking. Smoking drastically decreases the chance of a solid fusion. 2. No bending, lifting more than 5 pounds, or twisting (roll like a log when turning in bed). 3. You may shower 3 days after surgery. Thoroughly dry wound. Do not soak in the tub. 4. Cervical collar: Must be worn at all times including sleeping. You may remove the brace only to bath, eat and if you are sitting in a recliner. 5. Please walk as much as you can for exercise. Gradually increase the distance that you walk as your endurance increases. SPECIAL CARE INSTRUCTIONS: VERY IMPORTANT TO READ AND REVIEW A. Do not take any anti-inflammatory medications (i.e. Indocin, Advil, Aspirin, Naprosyn, Aleve, Motrin, etc.) as these may inhibit the chance of a solid fusion. Tylenol is okay to take. B. Your surgical incision has been closed with a cosmetic suture under the skin that will dissolve in about 6 weeks. In 14 days, you can use a pair of clean scissors and cut the suture that is left outside of the skin at the ends of your incision. C. Complications are uncommon, but please contact us if you have any signs or symptoms of: 1. wound infection (fever higher than 102.5 degrees F, redness, separation of wound, drainage, or increasing pain from the incision) 2. blood clots in legs (pain, swelling, redness and warmth in legs) 3. urinary tract infection (fever higher than 102.5 degrees, burning upon urination or increased frequency of urination) 4. nerve problems (inability to walk on your toes or heels, numbness, loss of bowel or bladder control) 5. any other symptoms that concern you. D. Please call the office at if you have any concerns or questions about your operation or recovery. MANAGING PAIN AFTER SPINAL SURGERY 1. Narcotic medication is intended for short-term use and will be provided for surgical pain. Surgical pain usually lasts for a period of 4-6 weeks. Narcotic medication includes Percocet, Vicodin, Darvocet, Tylenol #3 or Lortab. 2. Longer-term pain is more appropriately treated with non-narcotic medication such as Tylenol ES. 3. Muscle spasm is not appropriately treated with narcotics. Muscle relaxers such as Soma, Flexeril or Skelaxin can be used along with Tylenol ES. 4. Remember that we all live with some "aches and pains". This is not unusual or uncommon after an injury or as we get older. 5. We will provide appropriate medication within the normal guidelines of their prescribed use. We will also be very cautious and aware of potential abuse and extended duration of patients' medication needs. 6. Please allow 2-3 days to process refills. Prescriptions will not be mailed but must be picked up at the office. FOLLOW UP VISIT: Keep your scheduled follow-up appointment. Any questions, please call the office at . Pending Studies at Discharge: No Stand-Alone Forms: [facility], Smoking Cessation Medications and DC Order Prescriptions: New tramadol 50 mg tablet 50 mg PO Q6H PRN (Reason: pain, moderate) Qty: 20 0RF oxycodone 5 mg tablet 5 mg PO Q6H PRN (Reason: pain, severe) Qty: 20 0RF Continued Mirena 20 mcg/24 hours (8 yrs) 52 mg Intrauterine Device 20 mcg INTRAUTERINE UD ascorbic acid (vitamin C) [Vitamin C] 1,000 mg Tablet 1 g PO BID simvastatin 10 mg Tablet 10 mg PO ONCE HS liothyronine 5 mcg Tablet 10 mcg PO QAM lisinopril 10 mg Tablet 10 mg PO QAM levothyroxine 200 mcg Tablet 200 mcg PO QAM hydrochlorothiazide 25 mg Tablet 25 mg PO QAM sertraline 50 mg Tablet 75 mg PO QAM omega-3 fatty acids Capsule 1,000 mg PO QAM cholecalciferol (vitamin D3) [Vitamin D3] 125 mcg (5,000 unit) Tablet 125 mcg PO DAILY cyanocobalamin (vitamin B-12) 1,000 mcg Capsule 1,000 mcg PO QAM Trulicity 4.5 mg/0.5 mL Pen Injector 4.5 mg SUBCUT WK Label Comments: SATURDAY albuterol sulfate 90 mcg/actuation Hfa Aerosol Inhaler 1 inh INHALATION QID PRN (Reason: SOB) Discharge Orders: Discharge Order (Routine); Ordered 05/15/22 Ordered By: Sreedhar Samano Admission Data Admit Date/Time: 05/14/22 10:44 Attending Provider: Sreedhar Samano Admit Provider: Sreedhar Samano Primary Care Provider: Tim Day Other Providers: Soha Odom ; Brooke Ayala I.
[2022-05-15 10:57] LABS: BUN Creatinine Ratio 15.7 (10-20); Calcium 8.7 mg/dl (8.5-10.1); Creatinine Clr Calc Pharmacy 180.7 ml/min; Est GFR (African American) 124.7 ml/min; Est GFR (Non-African American) 107.6 ml/min; Potassium 4.1 mmol/L (3.5-5.1)
--- NOTE | 2022-05-15 11:52 | Hospitalist Progress Note ---
Date of Service May 15, 2022 Assessment & Plan (1) S/P cervical discectomy: (2) Diabetes mellitus type 2 in obese: (3) Hypertension: (4) Hyperlipidemia: (5) Hypothyroidism: (6) Anxiety and depression: Plan 41 year old female that presented to the [facility] for an elective C3-C4 cervical discectomy/fusion and a C5 corpectomy after failed conservative management. PMH: diabetes mellitus type 2, hypothyroidism, hyperlipidemia, hypertension, anxiety and depression. S/P cervical discectomy: POD# 1 s/p cervical discectomy and fusion with Dr. Samano. EBL 25 mL Hb is stable. Leukocytosis this AM likely reactive Pain control, wound care, anticoagulation and activities per Primary surgeon. Diabetes mellitus type 2: Last A1c 04/20: 6.5 On , last dose on Saturday Takes repaglinide daily Continue home antidiabetic regimen Hypertension: Continue home antihypertensives Hyperlipidemia: Takes simvastatin; continue Hypothyroidism: Takes levothyroxine and liothyronine; continue Anxiety and depression: Takes sertraline; continue Medically stable for discharge Admission and Anticipated Discharge Date Admission Date: May 14, 2022 Subjective Patient seen and examined Reports surgical site pain is well controlled Denied any other complaints Tolerating po diet well Physical Exam Constitutional: + well hydrated and + obese; no acute distress Eyes: PERRL, conjunctivae normal, anicteric sclerae ENMT: external ear and nose normal, oropharynx normal Neck: Neck collar in place Respiratory: normal respiratory effort, lungs clear to auscultation Cardiovascular: Rate/Rhythm: regular rate and regular rhythm S1 S2 Gastrointestinal (Abdomen): normal bowel sounds, soft, nontender, no hepatosplenomegaly Musculoskeletal: no cyanosis or clubbing, extremities motor strength 5/5 Neurologic: PERRL, EOMI, accommodation nl, no face palsy, no dysarthria Psychiatric: A+Ox3, euthymic affect Results & Data Results & Data ([facility]) Vital Signs (Past 12 Hours) Vital Signs Temp Pulse Resp BP BP Pulse Ox O2 Del Method 05/15/22 11:00 79 18 95 Room Air 05/15/22 07:23 87 16 92 Room Air 05/15/22 07:17 36.5 C 85 16 120/75 96 Room Air 05/15/22 05:44 36.8 C 87 16 118/75 93 Room Air 05/15/22 03:02 36.5 C 84 16 111/73 93 Room Air 05/15/22 02:35 88 18 91 Nasal Cannula 05/15/22 01:10 36.4 C L 85 16 112/71 97 Nasal Cannula O2 Flow Rate 05/15/22 11:00 05/15/22 07:23 05/15/22 07:17 05/15/22 05:44 05/15/22 03:02 05/15/22 02:35 1 05/15/22 01:10 2 Laboratory Results Abnormal lab results 05/14/22 05/14/22 05/14/22 Range/Units 17:02 20:39 23:33 WBC (4.8-10.8) K/ul Sodium (136-145) mmol/L Glucose (70-99(Fasting)) mg/dl POC Glucose 153 H 186 H 182 H (70-99) mg/dl 05/15/22 05/15/22 05/15/22 Range/Units 04:08 08:05 10:06 WBC 18.17 H (4.8-10.8) K/ul Sodium (136-145) mmol/L Glucose (70-99(Fasting)) mg/dl POC Glucose 168 H 177 H (70-99) mg/dl 05/15/22 05/15/22 Range/Units 10:06 11:49 WBC (4.8-10.8) K/ul Sodium 135 L (136-145) mmol/L Glucose 254 H (70-99(Fasting)) mg/dl POC Glucose 205 H (70-99) mg/dl
--- NOTE | 2022-05-15 12:09 | Pharmacy Report ---
Pharmacy Glycemic Short Note 2 - Date of Service May 15, 2022 - Glycemic Short BSG Results (Last 24 hours): 05/14/22 05/14/22 05/14/22 12:30 17:02 20:39 Glucose POC Glucose 193 H 153 H 186 H 05/14/22 05/15/22 05/15/22 23:33 04:08 08:05 Glucose POC Glucose 182 H 168 H 177 H 05/15/22 05/15/22 10:06 11:49 Glucose 254 H POC Glucose 205 H OUTPATIENT ANTIDIABETIC REGIMEN: * Trulicity * A1c 6.5% ASSESSMENT: 05/15 * BSGs [id number]/dL. Patient received 50 units of basal yesterday and 22 units of bolus. * POD #1, and tolerating diet * Will give another single dose of Lantus this afternoon as effects of dexamethasone likely still contributing. No change to Novolog wt/stress 3. Will need to watch closely as effects of steroids wane. 05/14 * 41 year old female now s/p spinal surgery. Given steroids intraoperatively, then ordered dexamethasone 6 mg iv q 8 hrs x 3 doses. Patient is a type 2 diabetic at home. Anticipate steroid induced hyperglycemia * Will give her a one time dose of Lantus 40 units x 1 to help with covering steroids which is in between stress 2/3 dosing based upon adjusted body weight. Will use a stress of 3 dosing for novolog for now * May add small scale for additional basal for HS time in case BSGs are rapidly increasing PLAN FOR INPATIENT GLYCEMIC CONTROL: * Hold outpatient oral diabetes medications * Basal insulin * Lantus 10 units x 1 * Bolus insulin * NovoLog per scale ACHS or Q6hrs while NPO * Goal Range: Low 110 mg/dL - High 140 mg/dL * Correction Factor: 15 mg/dL/unit * Nutritional / Prandial insulin per carb ratio of 1 unit per 4 grams CHO consumed
[2022-05-15] MEDS ORDERED: LANTUS PER UNIT CHARGE SQ ONE (12:15)
== END 2022-05-15 15:08 | disposition home or self-care (01) | DRG 460 ==
LOC: ASU 06:12 → INTOOBSV 10:44 → 3E 10:44